=== PATIENT | male | born 1985 | race Caucasian/White ===

== ENCOUNTER 2019-05-01 19:34 | Emergency (ER) | payer OTHER ==
[~2019-05-01] VITALS: Ht 170.2 cm; Wt 72.6 kg
== END 2019-05-01 21:34 | disposition home or self-care (01) ==
LOC: ER 19:34
DX: S61.012A Laceration without foreign body of left thumb without damage to nail, initial encounter (principal); Z23 Encounter for immunization; Z88.0 Allergy status to penicillin; W27.4XXA Contact with kitchen utensil, initial encounter
CPT/HCPCS: 12001; 90471; 90714; 99282-25